=== PATIENT | female | born 1975 | race African-American/Black ===

== ENCOUNTER 2019-04-07 00:15 | Inpatient (IN) | payer OTHER ==
[2019-04-07] MEDS ORDERED: Water For Irrigation,Sterile 1,000 ML Container IRR PRN (00:40)
[2019-04-07] MEDS ORDERED: Lidocaine 1% 50 ML MDV INJECT PRN (00:40)
[2019-04-07] MEDS ORDERED: Tranexamic Acid 1,000 MG in Sodium Chloride 0.9% 100 ML IV PRN (00:40)
[2019-04-07] MEDS ORDERED: Methylergonovine 0.2 MG/1 ML Amp IM PRN (00:40)
[2019-04-07] MEDS ORDERED: Sodium Chloride 0.9% 10 ML Syringe FLUSH PRN (00:40)
[2019-04-07] MEDS ORDERED: Terbutaline 1 MG/ML SDV SUBCUT PRN (00:40)
[2019-04-07] MEDS ORDERED: Carboprost Tromethamine 250 MCG/1 ML Amp IM PRN (00:40)
[2019-04-07] MEDS ORDERED: Sodium Chloride 0.9% 2.5 ML Syringe FLUSH PRN (00:40)
[2019-04-07] MEDS ORDERED: Butorphanol 1 MG/ML SDV IVPUSH PRN (00:40)
[2019-04-07] MEDS ORDERED: Sodium Chloride 0.9% 10 ML SDV IV PRN (00:40)
[2019-04-07] MEDS ORDERED: Nalbuphine 10 MG/1 ML Vial IVPUSH PRN (00:40)
[2019-04-07] MEDS ORDERED: Misoprostol 200 MCG Tab PO PRN (00:40)
[2019-04-07] MEDS ORDERED: Oxytocin/0.9 % Sodium Chloride 30 UNIT/500 ML BAG IV SCH ×2 (00:45)
[2019-04-07] MEDS: Lactated Ringers 1,000 ML IV SCH ×2 (01:28→05:35)
[2019-04-07] MEDS ORDERED: Misoprostol 25 MCG (1/4 of 100 MCG) Tab PO PRN ×2 (01:30→05:30)
[2019-04-07] MEDS ORDERED: Misoprostol 25 MCG (1/4 of 100 MCG) Tab VAG PRN ×2 (01:30→05:30)
[2019-04-07] MEDS ORDERED: Benzocaine/Menthol 20%-0.5% Spray 78 GM Cannister TOP PRN (08:42)
[2019-04-07] MEDS ORDERED: Docusate Sodium 100 MG Cap PO PRN (08:42)
[2019-04-07] MEDS ORDERED: Acetaminophen 500 MG Tab PO PRN ×2 (08:42)
[2019-04-07] MEDS ORDERED: oxyCODONE 5 MG Tab PO PRN (08:42)
[2019-04-07] MEDS ORDERED: Bisacodyl 10 MG Supp RECTAL PRN (08:42)
[2019-04-07] MEDS ORDERED: Lanolin 100% Cream 7 GM Tube TOP PRN (08:42)
[2019-04-07] MEDS ORDERED: Witch Hazel Medicated Pads 40/Jar TOP PRN (08:42)
[2019-04-07] MEDS ORDERED: Ibuprofen 400 MG Tab PO PRN (08:42)
--- NOTE | 2019-04-07 08:46 | PCM.LDHP ---
L&D History of Present Illness - General Date of Service: 04/07/19 Admit Problem/Dx: Patient Status Order with Admit Dx/Problem 04/07/19 00:40 Patient Status [ADT] Routine 04/07/19 08:42 Patient Status [ADT] Routine Admission Diagnosis/Problem Admission Diagnosis/Problem Source of Information: Patient History Limitations: Reports: No Limitations - History of Present Illness Improves with: Reports: None Worsens with: Reports: None Associated Symptoms: Reports: N - Related Data Allergies/Adverse Reactions: Allergies Allergy/AdvReac Type Severity Reaction Status Date / Time No Known Allergies Allergy Verified 04/07/19 01:32 Home Medications: Home Meds Vits #93/Iron Fum/FA [ Formula Tablet] 1 each PO DAILY [History] Past Medical History Gastrointestinal History: Reports: Other (See Below) 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: Musculoskeletal History: Reports: Back Pain, Chronic - Infectious Disease History Infectious Disease History: Reports: Chicken Pox - Past Surgical History GI Surgical History: Reports: None Musculoskeletal Surgical History: Reports: None Social & Family History - Family History Family Medical History: Noncontributory - Tobacco Use Smoking Status *Q: Never Smoker Second Hand Smoke Exposure: No - Caffeine Use Caffeine Use: Reports: Soda Caffeine Use Comment: once in a while - Recreational Drug Use Recreational Drug Use: No H&P Review of Systems - Review of Systems: Review Of Systems: See Below General: Reports: No Symptoms HEENT: Reports: No Symptoms Pulmonary: Reports: No Symptoms Cardiovascular: Reports: No Symptoms Gastrointestinal: Reports: No Symptoms Genitourinary: Reports: No Symptoms Musculoskeletal: Reports: No Symptoms Skin: Reports: No Symptoms Psychiatric: Reports: No Symptoms Neurological: Reports: No Symptoms Hematologic/Lymphatic: Reports: No Symptoms Immunologic: Reports: No Symptoms L&D Exam - Exam Exam: See Below - Vital Signs Weight: 82.1 kg - OB Specific Contraction Intensity: Moderate Movement: Active Heart Tones: Present Presentation: Vertex - Smart Score Smart Score Cervix Position: Anterior Smart Score Consistency: Soft Smart Score Effacement: 51-70% Smart Score Dilation: 3-4 cm Smart Score Infant's Station: -3 Smart Score Total: 8 - Exam General: Alert, Oriented HEENT: PERRLA, Conjunctiva Clear, EACs Clear, EOMI, Hearing Intact, Mucosa Moist & [place], Nares Patent, Normal Nasal Septum, Posterior Pharynx Clear, TMs Clear Neck: Supple, Trachea Midline Lungs: Clear to Auscultation, Normal Respiratory Effort Cardiovascular: Regular Rate, Regular Rhythm GI/Abdominal Exam: Normal Bowel Sounds, Soft, Non-Tender, No Organomegaly, No Distention, No Abnormal Bruit, No Mass, Pelvis Stable Rectal Exam: Normal Exam, Normal Rectal Tone Genitourinary: Normal external exam, Normal bimanual exam, Normal speculum exam Back Exam: Normal Inspection, Full Range of Motion Extremities: Normal Inspection, Normal Range of Motion, Non-Tender, No Pedal Edema, Normal Capillary Refill Skin: Warm, Dry, Intact Neurological: Cranial Nerves Intact, Reflexes Equal Bilateral Psychiatric: Alert, Normal Affect, Normal Mood - Patient Data Lab Results Last 24 hrs: Laboratory Results - last 24 hr 04/07/19 04/07/19 Range/Units 01:27 01:27 WBC 6.73 (4.0-11.0) K/uL RBC 4.41 (4.30-5.90) M/uL Hgb 11.5 L (12.0-16.0) g/dL Hct 35.5 L (36.0-46.0) % MCV 80.5 (80.0-98.0) fL MCH 26.1 L (27.0-32.0) pg MCHC 32.4 (31.0-37.0) g/dL RDW Std Deviation 53.6 (28.0-62.0) fl RDW Coeff of Geovani 18 H (11.0-15.0) % Plt Count 151 (150-400) K/uL MPV 11.10 (7.40-12.00) fL Nucleated RBC % 0.0 /100WBC Nucleated RBCs # 0 K/uL Blood Type AB POSITIVE Antibody Screen NEGATIVE Result Diagrams: 04/07/19 01:27 Problem List Initiated/Reviewed/Updated: Yes Orders Last 24hrs: Active Orders 24 hr Category Date Time Status Patient Status [ADT] Routine ADT 04/07/19 08:42 Ordered Bedrest Bathroom Privileges [RC] ASDIRECTED Care 04/07/19 00:40 Active Communication Order [RC] ASDIRECTED Care 04/07/19 00:40 Active Communication Order [RC] ASDIRECTED Care 04/07/19 00:40 Active Communication Order [RC] ASDIRECTED Care 04/07/19 00:40 Active Heart Tones [RC] CONTINUOUS Care 04/07/19 00:40 Active Non Stress Test [RC] PER UNIT ROUTINE Care 04/07/19 00:40 Active May Shower [RC] ASDIRECTED Care 04/07/19 00:40 Active May Shower [RC] ASDIRECTED Care 04/07/19 08:42 Ordered Notify Provider [RC] PRN Care 04/07/19 00:40 Active Notify Provider [RC] PRN Care 04/07/19 00:40 Active Notify Provider [RC] PRN Care 04/07/19 00:40 Active Notify Provider [RC] STAT Care 04/07/19 00:40 Active Oxygen Therapy [RC] ASDIRECTED Care 04/07/19 00:40 Active Peripheral IV Care [RC] PRN Care 04/07/19 00:40 Active Up ad Megan [RC] ASDIRECTED Care 04/07/19 00:40 Active Up ad Megan [RC] ASDIRECTED Care 04/07/19 08:42 Ordered Vaginal Exam [RC] PRN Care 04/07/19 00:40 Active Vaginal Exam [RC] PRN Care 04/07/19 00:40 Active Vital Signs [RC] PER UNIT ROUTINE Care 04/07/19 00:40 Active Vital Signs [RC] PER UNIT ROUTINE Care 04/07/19 08:42 Ordered HEMOGLOBIN/HEMATOCRIT,HH [HEME] Timed Lab 04/08/19 05:11 Ordered RAPID PLASMA REAGIN, QUANT [REF] Routine Lab 04/07/19 01:27 Received Acetaminophen [Tylenol Extra Strength] Med 04/07/19 08:42 Ordered 1,000 mg PO Q4H PRN Acetaminophen [Tylenol Extra Strength] Med 04/07/19 08:42 Ordered 500 mg PO Q4H PRN Benzocaine/Menthol [Dermoplast Pain Relief 20%-0.5% Med 04/07/19 08:42 Ordered [place]] 78 gm TOP ASDIRECTED PRN Butorphanol [Stadol] Med 04/07/19 00:40 Active 1 mg IVPUSH Q1H PRN Carboprost Tromethamine [Hemabate DS] Med 04/07/19 00:40 Active 250 mcg IM ASDIRECTED PRN Docusate Sodium [Colace] Med 04/07/19 08:42 Ordered 100 mg PO BID PRN Ibuprofen [Motrin] Med 04/07/19 08:42 Ordered 400 mg PO Q4H PRN Ibuprofen [Motrin] Med 04/07/19 08:42 Ordered 800 mg PO Q6H PRN Lactated Ringers [Ringers, Lactated] 1,000 ml Med 04/07/19 00:45 Active IV ASDIRECTED Lanolin [Lansinoh HPA] Med 04/07/19 08:42 Ordered See Dose Instructions TOP ASDIRECTED PRN Lidocaine 1% [Xylocaine 1%] Med 04/07/19 00:40 Active 50 ml INJECT ONETIME PRN Methylergonovine [Methergine] Med 04/07/19 00:40 Active 0.2 mg IM ASDIRECTED PRN Nalbuphine [Nubain] Med 04/07/19 00:40 Active 10 mg IVPUSH Q1H PRN Oxytocin/0.9 % Sodium Chloride [Oxytocin 30 Unit/500 ML Med 04/07/19 00:45 Active -NS] 30 unit in 500 ml IV TITRATE Oxytocin/0.9 % Sodium Chloride [Oxytocin 30 Unit/500 ML Med 04/07/19 00:45 Active -NS] 30 unit in 500 ml IV TITRATE Sodium Chloride 0.9% [Normal Saline] Med 04/07/19 00:40 Active 10 ml IV ASDIRECTED PRN Sodium Chloride 0.9% [Saline Flush] Med 04/07/19 00:40 Active 10 ml FLUSH ASDIRECTED PRN Sodium Chloride 0.9% [Saline Flush] Med 04/07/19 00:40 Active 2.5 ml FLUSH ASDIRECTED PRN Terbutaline [Brethine] Med 04/07/19 00:40 Active 0.25 mg SUBCUT ASDIRECTED PRN Tranexamic Acid [Cyklokapron] 1,000 mg Med 04/07/19 00:40 Active Sodium Chloride 0.9% [Normal Saline] 100 ml IV ONETIME Water For Irrigation,Sterile [Sterile Water for Med 04/07/19 00:40 Active Irrigation] 1,000 ml IRR ASDIRECTED PRN [place] Toyin [Tucks] Med 04/07/19 08:42 Ordered 1 pad TOP ASDIRECTED PRN bisacodyL [Dulcolax] Med 04/07/19 08:42 Ordered 10 mg RECTAL ONETIME PRN miSOPROStoL [Cytotec] Med 04/07/19 00:40 Active 200 mcg PO ONETIME PRN miSOPROStoL [Cytotec] Med 04/07/19 01:30 Active 25 mcg PO ONETIME PRN miSOPROStoL [Cytotec] Med 04/07/19 05:30 Active 25 mcg PO Q4H PRN miSOPROStoL [Cytotec] Med 04/07/19 01:30 Active 25 mcg VAG ONETIME PRN miSOPROStoL [Cytotec] Med 04/07/19 05:30 Active 25 mcg VAG Q4H PRN oxyCODONE Med 04/07/19 08:42 Ordered 5 mg PO Q2H PRN Assess Lochia [WOMSER] Per Unit Routine Ot 04/07/19 08:42 Ordered Assess Uterine Involution [WOMSER] Per Unit Routine Oth 04/07/19 08:42 Ordered Scalp Electrode [WOMSER] Per Unit Routine Oth 04/07/19 00:40 Ordered Medication Administration Instruction [OM.PC] Q3H Oth 04/07/19 00:45 Ordered Peripheral IV Discontinue [OM.PC] Routine Oth 04/07/19 08:42 Ordered Peripheral IV Insertion Adult [OM.PC] Routine Ot 04/07/19 00:40 Ordered Resuscitation Status Routine Resus Stat 04/07/19 00:40 Ordered Medication Orders Butorphanol Tartrate (Stadol) 1 mg IVPUSH Q1H PRN PRN Reason: Pain Carboprost Tromethamine (Hemabate Ds) 250 mcg IM ASDIRECTED PRN PRN Reason: Post Hemorrhage Lactated Ringer's (Ringers, Lactated) 1,000 mls @ 150 mls/hr IV ASDIRECTED MALIA Last Admin: 04/07/19 05:35 Dose: 150 mls/hr Infusion: 04/07/19 05:35 Dose: 150 mls/hr Admin: 04/07/19 01:28 Dose: 150 mls/hr Oxytocin/Sodium Chloride (Oxytocin 30 Unit/500 Ml-Ns) 30 unit in 500 mls @ 999 mls/hr IV TITRATE MALIA Oxytocin/Sodium Chloride (Oxytocin 30 Unit/500 Ml-Ns) 30 unit in 500 mls @ 2 mls/hr IV TITRATE MALIA; Protocol Tranexamic Acid 1,000 mg/ (Sodium Chloride) 110 mls @ 660 mls/hr IV ONETIME PRN PRN Reason: Bleeding Lidocaine HCl (Xylocaine 1%) 50 ml INJECT ONETIME PRN PRN Reason: Laceration repair Methylergonovine Maleate (Methergine) 0.2 mg IM ASDIRECTED PRN PRN Reason: Post Hemorrhage Misoprostol (Cytotec) 200 mcg PO ONETIME PRN PRN Reason: Post Hemorrhage Misoprostol (Cytotec) 25 mcg VAG ONETIME PRN PRN Reason: Cervical Ripening Last Admin: 04/07/19 01:47 Dose: 25 mcg Misoprostol (Cytotec) 25 mcg VAG Q4H PRN PRN Reason: Cervical Ripening Last Admin: 04/07/19 06:14 Dose: 25 mcg Misoprostol (Cytotec) 25 mcg PO ONETIME PRN PRN Reason: Cervical Ripening Last Admin: 04/07/19 01:43 Dose: 25 mcg Misoprostol (Cytotec) 25 mcg PO Q4H PRN PRN Reason: Cervical Ripening Last Admin: 04/07/19 06:14 Dose: 25 mcg Nalbuphine HCl (Nubain) 10 mg IVPUSH Q1H PRN PRN Reason: Pain (severe 7-10) Sodium Chloride (Saline Flush) 10 ml FLUSH ASDIRECTED PRN PRN Reason: Keep Vein Open Sodium Chloride (Saline Flush) 2.5 ml FLUSH ASDIRECTED PRN PRN Reason: Keep Vein Open Sodium Chloride (Normal Saline) 10 ml IV ASDIRECTED PRN PRN Reason: IV Use Sterile Water (Sterile Water For Irrigation) 1,000 ml IRR ASDIRECTED PRN PRN Reason: delivery Terbutaline Sulfate (Brethine) 0.25 mg SUBCUT ASDIRECTED PRN PRN Reason: Tacysystole
--- NOTE | 2019-04-07 12:03 | OR ---
SURGEON: Dell Pedroza MD DATE OF PROCEDURE: Ms. Kimberly Huerta is 43 years old. She is para 4-0-0-4. She is term. She is admitted for elective induction with Cytotec. 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 She is admitted at 3 cm. She responded to one dose of Cytotec. She progressed rather rapidly from 3 to 4 to 9 cm with bulging bag of water. I ruptured her bag of water and it was clear fluid, and she was able to accomplish normal spontaneous vaginal delivery of a male fetus, cried immediately. score reported to be 8 and 9. The placenta delivered spontaneous, complete, and intact without any problem. There was one nuchal cord at delivery and there was no laceration. No need for episiotomy. Estimated blood loss was 250 to 300 mL. heart rate was category 1 through the entire process of labor. JUAN / BECKY /[id number]
[2019-04-07] MEDS: Ibuprofen 800 MG Tab PO PRN (20:10)
[2019-04-08] MEDS: Ibuprofen 800 MG Tab PO PRN (09:45)
--- NOTE | 2019-04-08 10:42 | PCM.DCSUM1 ---
Discharge Summary - Hospital Course Diagnosis: Stroke: No - Discharge Data Discharge Date: 04/08/19 Discharge Disposition: Home, Self-Care 01 Condition: Good - Referral to Home Health Primary Care Physician: PCP None - Patient Instructions Diet: Usual Diet as Tolerated Activity: As Tolerated Driving: Do Not Drive Showering/Bathing: May Shower - Discharge Plan Home Medications: Home Meds Vits #93/Iron Fum/FA [ Formula Tablet] 1 each PO DAILY [History] Referrals: [facility] [Outside] Dell Pedroza MD [Physician] - 05/13/19 10:45 am - Discharge Summary/Plan Comment DC Time >30 min.: Yes - General Info Date of Service: 04/08/19 Functional Status: Reports: Pain Controlled - Review of Systems General: Reports: No Symptoms HEENT: Reports: No Symptoms Pulmonary: Reports: No Symptoms Cardiovascular: Reports: No Symptoms Gastrointestinal: Reports: No Symptoms Genitourinary: Reports: No Symptoms Musculoskeletal: Reports: No Symptoms Skin: Reports: No Symptoms Neurological: Reports: No Symptoms Psychiatric: Reports: No Symptoms - Patient Data Vitals - Most Recent: Last Vital Signs Temp 35.9 C 04/08/19 07:35 Pulse 90 04/08/19 07:35 Resp 16 04/08/19 07:35 BP 121/68 04/08/19 07:35 Pulse Ox 98 04/08/19 07:35 Weight - Most Recent: 82.1 kg Lab Results - Last 24 hrs: Laboratory Results - last 24 hr 04/08/19 Range/Units 05:59 Hgb 11.0 L (12.0-16.0) g/dL Hct 34.5 L (36.0-46.0) % Med Orders - Current: Current Medications Acetaminophen (Tylenol Extra Strength) 500 mg PO Q4H PRN PRN Reason: Pain Last Admin: 04/07/19 20:09 Dose: 500 mg Acetaminophen (Tylenol Extra Strength) 1,000 mg PO Q4H PRN PRN Reason: Pain Benzocaine/Menthol (Dermoplast Pain Relief 20%-0.5% [place]) 78 gm TOP ASDIRECTED PRN PRN Reason: Perineal Comfort Measure Bisacodyl (Dulcolax) 10 mg RECTAL ONETIME PRN PRN Reason: Constipation Butorphanol Tartrate (Stadol) 1 mg IVPUSH Q1H PRN PRN Reason: Pain Carboprost Tromethamine (Hemabate Ds) 250 mcg IM ASDIRECTED PRN PRN Reason: Post Hemorrhage Docusate Sodium (Colace) 100 mg PO BID PRN PRN Reason: Constipation Last Admin: 04/07/19 20:10 Dose: 100 mg Emollient Ointment (Lansinoh Hpa) 0 gm TOP ASDIRECTED PRN PRN Reason: Sore Nipples Lactated Ringer's (Ringers, Lactated) 1,000 mls @ 150 mls/hr IV ASDIRECTED MALIA Last Admin: 04/07/19 05:35 Dose: 150 mls/hr Oxytocin/Sodium Chloride (Oxytocin 30 Unit/500 Ml-Ns) 30 unit in 500 mls @ 999 mls/hr IV TITRATE MALIA Oxytocin/Sodium Chloride (Oxytocin 30 Unit/500 Ml-Ns) 30 unit in 500 mls @ 2 mls/hr IV TITRATE MALIA; Protocol Tranexamic Acid 1,000 mg/ (Sodium Chloride) 110 mls @ 660 mls/hr IV ONETIME PRN PRN Reason: Bleeding Ibuprofen (Motrin) 400 mg PO Q4H PRN PRN Reason: Pain Ibuprofen (Motrin) 800 mg PO Q6H PRN PRN Reason: Pain Last Admin: 04/08/19 09:45 Dose: 800 mg Lidocaine HCl (Xylocaine 1%) 50 ml INJECT ONETIME PRN PRN Reason: Laceration repair Methylergonovine Maleate (Methergine) 0.2 mg IM ASDIRECTED PRN PRN Reason: Post Hemorrhage Misoprostol (Cytotec) 200 mcg PO ONETIME PRN PRN Reason: Post Hemorrhage Misoprostol (Cytotec) 25 mcg VAG ONETIME PRN PRN Reason: Cervical Ripening Last Admin: 04/07/19 01:47 Dose: 25 mcg Misoprostol (Cytotec) 25 mcg VAG Q4H PRN PRN Reason: Cervical Ripening Last Admin: 04/07/19 06:14 Dose: 25 mcg Misoprostol (Cytotec) 25 mcg PO ONETIME PRN PRN Reason: Cervical Ripening Last Admin: 04/07/19 01:43 Dose: 25 mcg Misoprostol (Cytotec) 25 mcg PO Q4H PRN PRN Reason: Cervical Ripening Last Admin: 04/07/19 06:14 Dose: 25 mcg Nalbuphine HCl (Nubain) 10 mg IVPUSH Q1H PRN PRN Reason: Pain (severe 7-10) Oxycodone HCl (Oxycodone) 5 mg PO Q2H PRN PRN Reason: Pain Sodium Chloride (Saline Flush) 10 ml FLUSH ASDIRECTED PRN PRN Reason: Keep Vein Open Sodium Chloride (Saline Flush) 2.5 ml FLUSH ASDIRECTED PRN PRN Reason: Keep Vein Open Sodium Chloride (Normal Saline) 10 ml IV ASDIRECTED PRN PRN Reason: IV Use Sterile Water (Sterile Water For Irrigation) 1,000 ml IRR ASDIRECTED PRN PRN Reason: delivery Terbutaline Sulfate (Brethine) 0.25 mg SUBCUT ASDIRECTED PRN PRN Reason: Tacysystole Witch Toyin (Tucks) 1 pad TOP ASDIRECTED PRN PRN Reason: comfort care - Exam General: Reports: Alert, Oriented HEENT: Reports: Pupils Equal, Pupils Reactive, EOMI, Mucous Membr. Moist/[place] Neck: Reports: Supple Lungs: Reports: Clear to Auscultation, Normal Respiratory Effort Cardiovascular: Reports: Regular Rate, Regular Rhythm GI/Abdominal Exam: Normal Bowel Sounds, Soft, Non-Tender, No Organomegaly, No Distention, No Abnormal Bruit, No Mass, Pelvis Stable (Female) Exam: Normal External Exam, Normal Speculum Exam, Normal Bimanual Exam Rectal (Female) Exam: Normal Exam, Normal Rectal Tone Back Exam: Reports: Normal Inspection, Full Range of Motion Extremities: Normal Inspection, Normal Range of Motion, Non-Tender, No Pedal Edema, Normal Capillary Refill Skin: Reports: Warm, Dry, Intact Wound/Incisions: Reports: Healing Well Neurological: Reports: No New Focal Deficit Psy/Mental Status: Reports: Alert, Normal Affect, Normal Mood
== END 2019-04-08 13:50 | disposition home or self-care (01) | DRG 807 ==
LOC: MW.OBCHECK 00:15 → MW.OB 00:19 → OBSVTOIN 07:26 → MW.OB 11:10
PROVIDERS: ADMIT Obstetrics & Gynecology; ATTEND Obstetrics & Gynecology
PROC: 10E0XZZ Delivery of Products of Conception, External Approach (ICD-10-PCS; principal; 2019-04-07)
PROC: 10907ZC Drainage of Amniotic Fluid, Therapeutic from Products of Conception, Via Natural or Artificial Opening (ICD-10-PCS; 2019-04-07)
PROC: 3E0P7VZ Introduction of Hormone into Female Reproductive, Via Natural or Artificial Opening (ICD-10-PCS; 2019-04-07)
DX: O80 Encounter for full-term uncomplicated delivery (principal); Z37.0 Single live birth; Z3A.38 38 weeks gestation of pregnancy
CPT/HCPCS: 36415; 59025; 59409; 85014; 85018; 85027; 86593; 86850; 86900; 86901; A9270-GY; J7120

== ENCOUNTER 2021-04-07 10:53 | Emergency (ER) | payer OTHER ==
--- NOTE | 2021-04-07 11:19 | EDM.PDOC ---
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 She points to the area where the median nerve comes to the wrist and says it is exquisitely painful in the right and moderately painful in the left. It is worse at the end of the day. It is virtually gone in the morning when she wakes up after resting. She has no motor or sensory deficit in the distal right upper or left upper extremity. She has no systemic signs of illness. Review of systems: As per history of present illness and below otherwise all systems reviewed and negative. Past medical history: As per history of present illness and as reviewed below otherwise noncontributory. Surgical history: As per history of present illness and as reviewed below otherwise noncontributory. Social history: No reported history of drug or alcohol abuse. Family history: As per history of present illness and as reviewed below otherwise noncontributory. Physical exam: Constitutional - well developed, well-nourished and in no acute distress HEENT - normocephalic, no evidence of trauma - external nose and mouth normal - no mass in neck and no JVD - mucosae moist EYES - full EOM, PERRL, no icterus - no evidence of inflammation, injection, or drainage Respiratory - no respiratory distress, equal bilateral expansion Circulatory-warm pink fingers Musculoskeletal tender in the volar wrist and Tinel's positive on the right at the median nerve tunnel. No gross deformity of long bones or joints - no tenderness, swelling or edema Neurologic -motor or sensory function intact in the distal upper extremities. Alert and oriented times four - CN II-XII grossly intact - motor sensory and coordination symmetrically normal Psychiatric - appropriate mood and affect with normal thought content Hematologic - No petechiae or purpura - mucosa appropriate color and sclera not pale - normal nail bed color and refill Integument - no rash or evidence of trauma - normal turgor Diagnostics: [] Therapeutics: [] Impression: [] Plan: [] Definitive disposition and diagnosis as appropriate pending reevaluation and review of above. 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 ED EXAM, GENERAL - Physical Exam Exam: See Below Free Text/Narrative:: My physical exam is in the HPI Course - Vital Signs Last Recorded V/S: Last Vital Signs Temp 36.1 C 04/07/21 11:00 Pulse 96 04/07/21 11:00 Resp 16 04/07/21 11:00 BP 154/88 H 04/07/21 11:00 Pulse Ox 98 04/07/21 11:00 - Orders/Labs/Meds Orders: Active Orders 24 hr Category Date Time Status Communication Order [RC] STAT Care 04/07/21 11:15 Active DME for Discharge [COMM] Stat Oth 04/07/21 11:13 Ordered - Re-Assessments/Exams Free Text/Narrative Re-Assessment/Exam: 04/07/21 11:15 Neurovascular structures remain intact and verified after placement of comfort splints Free Text/Narrative Re-Assessment/Exam: 04/07/21 11:49 Patient also mentioned that for 4 months her back hurts when she works so metimes. She does not have any other neurologic symptoms. Patient's back exam was unremarkable. I believe the same medicine and same instructions will be helpful for her inflammatory pain in her back and in her wrists Departure - Departure Time of Disposition: 11:50 Disposition: Home, Self-Care 01 Condition: Good Clinical Impression: Tenosynovitis of both wrists - Discharge Information Prescriptions: methylPREDNISolone [Medrol Dose Pack] 4 mg PO DAILY #21 tab Instructions: Carpal Tunnel Syndrome, [id number], Tenosynovitis Referrals: PCP,None [Primary Care Provider] - Forms: ED Department Discharge Additional Instructions: Your prescription for the anti-inflammatory medicine went to [facility] in the [facility] building. If you do not pick it up today they will not be a pharmacy open [place] until 8 AM Saturday. Heat to the area would be good. Limit stress to the area. If you fail to improve make an appointment with primary care. You also need to see primary care to recheck and follow your blood pressure. [facility] [address] [place] [id number] [place] [address] The following information is given to patients seen in the emergency department who are being discharged to home. This information is to outline your options for follow-up care. We provide all patients seen in our emergency department with a follow-up referral. The need for follow-up, as well as the timing and circumstances, are variable depending upon the specifics of your emergency department visit. If you don't have a primary care physician on staff, we will provide you with a referral. We always advise you to contact your personal physician following an emergency department visit to inform them of the circumstance of the visit and for follow-up with them and/or the need for any referrals to a consulting specialist. The emergency department will also refer you to a specialist when appropriate. This referral assures that you have the opportunity for follow-up care with a specialist. All of these measure are taken in an effort to provide you with optimal care, which includes your follow-up. Under all circumstances we always encourage you to contact your private physician who remains a resource for coordinating your care. When calling for follow-up care, please make the office aware that this follow-up is from your recent emergency room visit. If for any reason you are refused follow-up, please contact the [facility] Emergency Department at and asked to speak to the emergency department charge nurse. Sepsis Event Note (ED) - Evaluation Sepsis Screening Result: No Definite Risk - Focused Exam Vital Signs: Vital Signs Temp Pulse Resp BP Pulse Ox 04/07/21 11:00 36.1 C 96 16 154/88 H 98 - My Orders Last 24 Hours: My Active Orders 04/07/21 11:13 DME for Discharge [COMM] Stat 04/07/21 11:15 Communication Order [RC] STAT - Assessment/Plan Last 24 Hours: My Active Orders 04/07/21 11:13 DME for Discharge [COMM] Stat 04/07/21 11:15 Communication Order [RC] STAT
== END 2021-04-07 12:03 | disposition home or self-care (01) ==
LOC: MW.ED 10:53
DX: M65.9 Synovitis and tenosynovitis, unspecified (principal)
CPT/HCPCS: 99283